=== PATIENT | male | born 1980 | race Caucasian/White ===

== ENCOUNTER 2023-02-11 05:38 | Emergency (ER) | payer BC, OTHER ==
[~2023-02-11] VITALS: Ht 182.9 cm; Wt 87.6 kg
[2023-02-11] MEDS ORDERED: NS 1,000 ML IV ONE (06:45)
[2023-02-11] MEDS ORDERED: ONDANSETRON 4MG 2ML VIAL IV ONE (06:45)
[2023-02-11] MEDS ORDERED: KETOROLAC 30 MG/ML 1ML VIAL IV ONE (06:45)
[2023-02-11] MEDS ORDERED: diphenhydrAMINE 50MG/ML VIAL IV ONE (06:50)
[2023-02-11] MEDS ORDERED: methylPREDNISolone 125MG 2ML VIAL IV ONE (06:50)
[2023-02-11 07:44] LABS: BASO % 0.3 % (0.0-1.0); EOS % 0.1 % (0.0-3.0); HEMOGLOBIN 16.7 g/dl (13.5-17.5); LYMPH # 1.1 10^3/uL (1.5-5.0); MEAN CORPUSCULAR HEMOGLOBIN 31.3 pg (27.0-33.0); MEAN CORPUSCULAR HGB CONC 34.8 g/dl (32.0-36.5); MEAN CORPUSCULAR VOLUME 90.1 fl (80.0-96.0); MONO # 0.8 10^3/uL (0.0-0.8); NEUTROPHILS # 11.8 10^3/uL (1.5-8.5); NEUTROPHILS % 85.2 % (36.0-66.0); PLATELET COUNT, AUTOMATED 254 10^3/uL (150-450); RED BLOOD COUNT 5.33 10^6/uL (4.30-6.10); WHITE BLOOD COUNT 13.9 10^3/uL (4.0-10.0)
[2023-02-11 08:05] LABS: BILIRUBIN,DIRECT 0.7 MG/DL (<0.4); BILIRUBIN,TOTAL 2.2 MG/DL (0.3-1.2); TOTAL PROTEIN 7.1 G/DL (5.7-8.2)
[2023-02-11] MEDS ORDERED: ISOVUE-370 76% 100ML VIAL As Ordered ONE (08:05)
[2023-02-11] MEDS ORDERED: metroNIDAZOLE (FLAGYL) 500MG TABLET PO ONE (09:10)
[2023-02-11] MEDS ORDERED: CIPROFLOXACIN 500MG TABLET PO ONE (09:10)
[2023-02-11] MEDS ORDERED: MORPHINE 2 MG/ML 1ML VIAL IV ONE (09:15)
[2023-02-11] MEDS ORDERED: metroNIDAZOLE 500 MG in IV 1 EA IV ONE (09:15)
[2023-02-11] MEDS ORDERED: CIPROFLOXACIN 400 MG in IV 1 EA IV ONE (09:15)
[2023-02-11] MEDS ORDERED: CIPR-249 PO (12:26)
[2023-02-11] MEDS ORDERED: METR-265 PO (12:26)
[2023-02-11 12:31] VITALS: BP 110/64; TEMP 98.5; O2SAT 93
== END 2023-02-11 12:37 | disposition home or self-care (01) ==
LOC: M ED 05:38
DX: K57.32 Diverticulitis of large intestine without perforation or abscess without bleeding (principal); F10.10 Alcohol abuse, uncomplicated; Z86.16 Personal history of COVID-19; Z91.041 Radiographic dye allergy status; Z79.2 Long term (current) use of antibiotics; Z79.899 Other long term (current) drug therapy
CPT/HCPCS: 74177; 80047; 80076; 83605; 83690; 85025; 87040; 93041; 96374; 96375; 99284; J0744; J1200; J1836; J1885; J2405; J2930; Q9967

== ENCOUNTER 2023-02-24 11:48 | Emergency (ER) | payer BC ==
[~2023-02-24] VITALS: Ht 182.9 cm; Wt 83.5 kg
[~2023-02-24 11:48] MED LIST: CIPR-249 PO; METR-265 PO
[2023-02-24 12:58] LABS: BASO # 0.1 10^3/uL (0.0-0.2); BASO % 0.5 % (0.0-1.0); EOS # 0.1 10^3/uL (0.0-0.5); EOS % 0.7 % (0.0-3.0); HEMATOCRIT 48.1 % (42.0-52.0); HEMOGLOBIN 16.2 g/dl (13.5-17.5); LYMPH # 1.9 10^3/uL (1.5-5.0); LYMPH % 15.5 % (24.0-44.0); MEAN CORPUSCULAR HEMOGLOBIN 30.7 pg (27.0-33.0); MEAN CORPUSCULAR HGB CONC 33.7 g/dl (32.0-36.5); MEAN CORPUSCULAR VOLUME 91.3 fl (80.0-96.0); MONO # 0.9 10^3/uL (0.0-0.8); MONO % 7.6 % (2.0-8.0); NEUTROPHILS # 9.3 10^3/uL (1.5-8.5); NEUTROPHILS % 75.1 % (36.0-66.0); PLATELET COUNT, AUTOMATED 500 10^3/uL (150-450); RED BLOOD COUNT 5.27 10^6/uL (4.30-6.10); WHITE BLOOD COUNT 12.3 10^3/uL (4.0-10.0)
[2023-02-24] MEDS ORDERED: diphenhydrAMINE 50MG/ML VIAL IV ONE (13:25)
[2023-02-24 13:27] LABS: RSV AMPLIFICATION NEGATIVE (NEGATIVE)
[2023-02-24 13:29] LABS: ALBUMIN 3.4 G/DL (3.2-5.2); BILIRUBIN,DIRECT 0.3 MG/DL (<0.4); BILIRUBIN,TOTAL 0.7 MG/DL (0.3-1.2); TOTAL PROTEIN 7.1 G/DL (5.7-8.2)
[2023-02-24] MEDS: READI-CAT 2 PO SCH ×2 (14:30→15:30)
[2023-02-24] MEDS ORDERED: ISOVUE-370 76% 100ML VIAL As Ordered ONE (16:26)
[2023-02-24] MEDS ORDERED: NS 1,000 ML IV ONE (17:35)
[2023-02-24] MEDS ORDERED: PIPERACILLIN/TAZOBACTAM SOD 4.5 GM in D5W MINI-BAG PLUS 50 ML IV ONE (18:20)
[2023-02-24] MEDS ORDERED: KETOROLAC 30 MG/ML 1ML VIAL IV ONE (19:50)
[2023-02-24 20:47] VITALS: TEMP 98.5
[2023-02-24 20:56] VITALS: BP 117/83; O2SAT 96
== END 2023-02-24 20:57 | disposition short-term general hospital (02) ==
LOC: M ED 11:48
DX: K57.20 Diverticulitis of large intestine with perforation and abscess without bleeding (principal); F10.10 Alcohol abuse, uncomplicated; Z91.048 Other nonmedicinal substance allergy status; Z79.2 Long term (current) use of antibiotics; Z79.899 Other long term (current) drug therapy
CPT/HCPCS: 74177; 80047; 80076; 81001; 83605; 83690; 85025; 87086; 87631; 96365; 96366; 96375; 99284; J1200; J1885; J2543; Q9967

== ENCOUNTER 2023-03-07 11:50 | Emergency (ER) | payer BC ==
[~2023-03-07] VITALS: Ht 182.9 cm; Wt 83.5 kg
[2023-03-07] MEDS ORDERED: AMOX500T2 PO (11:57)
[2023-03-07 13:14] LABS: BASO # 0.1 10^3/uL (0.0-0.2); BASO % 0.9 % (0.0-1.0); EOS # 0.1 10^3/uL (0.0-0.5); EOS % 2.1 % (0.0-3.0); HEMATOCRIT 48.4 % (42.0-52.0); HEMOGLOBIN 16.4 g/dl (13.5-17.5); LYMPH # 2.1 10^3/uL (1.5-5.0); LYMPH % 35.9 % (24.0-44.0); MEAN CORPUSCULAR HEMOGLOBIN 30.7 pg (27.0-33.0); MEAN CORPUSCULAR HGB CONC 33.9 g/dl (32.0-36.5); MEAN CORPUSCULAR VOLUME 90.6 fl (80.0-96.0); MONO # 0.6 10^3/uL (0.0-0.8); MONO % 10.4 % (2.0-8.0); NEUTROPHILS # 2.9 10^3/uL (1.5-8.5); NEUTROPHILS % 49.8 % (36.0-66.0); PLATELET COUNT, AUTOMATED 462 10^3/uL (150-450); RED BLOOD COUNT 5.34 10^6/uL (4.30-6.10); WHITE BLOOD COUNT 5.8 10^3/uL (4.0-10.0)
[2023-03-07 13:37] LABS: BLOOD UREA NITROGEN 19 MG/DL (9-23); CALCIUM LEVEL 10.3 MG/DL (8.5-10.1); CARBON DIOXIDE LEVEL 30 MMOL/L (20-31); CHLORIDE LEVEL 103 MMOL/L (98-107); CREATININE FOR GFR 0.88 MG/DL (0.70-1.30); GLOMERULAR FILTRATION RATE > 60.0 (>60); GLUCOSE, FASTING 94 MG/DL (60-100); POTASSIUM SERUM 4.9 MMOL/L (3.5-5.1); SODIUM LEVEL 139 MMOL/L (136-145)
[2023-03-07] MEDS ORDERED: diphenhydrAMINE 50MG/ML VIAL IV ONE (14:55)
[2023-03-07] MEDS ORDERED: ISOVUE-370 76% 100ML VIAL As Ordered ONE (14:55)
[2023-03-07] MEDS ORDERED: FAMOTIDINE 20MG/2ML VIAL IVP ONE (14:55)
[2023-03-07] MEDS ORDERED: methylPREDNISolone 125MG 2ML VIAL IV ONE (14:55)
[2023-03-07 17:19] VITALS: BP 125/68; TEMP 98.4; O2SAT 100
== END 2023-03-07 17:25 | disposition home or self-care (01) ==
LOC: M ED 11:50
DX: R10.9 Unspecified abdominal pain (principal); Z48.03 Encounter for change or removal of drains; Z91.041 Radiographic dye allergy status; Z79.2 Long term (current) use of antibiotics
CPT/HCPCS: 74177; 80048; 83605; 85025; 96374; 99284; J1200; J2930; Q9967; S0028